=== PATIENT | male | born 1945 | race Caucasian/White ===

== ENCOUNTER → 2021-11-01 | Outpatient (CLI) | payer MEDICARE, BC ==
--- NOTE | 2021-11-01 09:35 | KCIC ---
EXAM: Head CT without contrast. HISTORY: Seizure. Stroke. Unsteady gait. Dizziness. TECHNIQUE: Computed tomographic images of the head were obtained without contrast. *One or more of the following individualized dose reduction techniques were utilized for this examina tion: 1. Automated exposure control. 2. Adjustment of the mA and/or kV according to patient size. 3. Use of iterative reconstruction technique. COMPARISON: None. FINDINGS: There is an acute on subacute subdural hematoma along the left cerebral convexity measuring approximately 6 mm in maximum thickness. There is suspected 3 mm rightward midline shift. 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 There are c erebral white matter changes due to chronic small vessel disease. There is cerebral volume loss with compensatory enlargement of the ventricles and extra-axial space. There is evidence of lens surgery. There is a mucous retention cyst involving the inferior left front al and anterior left ethmoid sinus. The mastoid air cells are clear. There is no suspicious calvarial lesion. IMPRESSION: 1. Small acute on subacute subdural hematoma along the left cerebral convexity, measuring 6 mm in max imum thickness. 2. 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 3. Cerebral atrophy. Findings were discussed with Rosio, the nurse for the referring physician, at 0930 hours on 11/02/19. FOR INTERNAL CODING PURPOSES RESULT CODE: (C) Electronically signed by: Michelle Franco MD (11/01/2021 9:33 AM) [id number]
== END ==
LOC: KCIC CT 08:57
PROVIDERS: ATTEND Family Medicine
DX: S06.5X0A Traumatic subdural hemorrhage without loss of consciousness, initial encounter (principal); I73.9 Peripheral vascular disease, unspecified; G31.9 Degenerative disease of nervous system, unspecified; G93.89 Other specified disorders of brain; X58.XXXA Exposure to other specified factors, initial encounter; Y93.89 Activity, other specified; Y92.89 Other specified places as the place of occurrence of the external cause; Y99.8 Other external cause status
CPT/HCPCS: 70450